=== PATIENT | male | born 1950 | race Caucasian/White ===

== ENCOUNTER 2017-08-13 09:24 | Inpatient (IN) | payer OTHER ==
[~2017-08-13] VITALS: Ht 177.8 cm; Wt 86.2 kg
[2017-08-13 10:28] LABS: ABSOLUTE BASOPHIL COUNT 0 /CUMM (0.0-0.2); ABSOLUTE EOSINOPHIL COUNT 0 /CUMM (0.0-0.7); ABSOLUTE GRANULOCYTE CT 7.9 /CUMM (1.4-6.5); ABSOLUTE LYMPH COUNT 0.1 /CUMM (1.2-3.4); ABSOLUTE MONOCYTE COUNT 0.4 /CUMM (0.10-0.60); BASOPHIL % 0 % (0.0-2.0); EOSINOPHIL % 0 % (0-5); GRANULOCYTE % 93.3 % (42.2-75.2); HEMATOCRIT 42.8 % (42-52); MEAN CORPUSCULAR HGB 26.6 PG (27.0-31.0); MEAN CORPUSCULAR HGB CONC 32.7 G/DL (33.0-37.0); MEAN CORPUSCULAR VOLUME 81.5 FL (80.0-94.0); MEAN PLATELET VOLUME 10.3 FL (7.4-10.4); PLATELET COUNT 199 /CUMM (130-400); RBC DISTRIBUTION WIDTH 15.2 % (11.5-14.5); RED BLOOD CELL CT 5.26 /CUMM (4.70-6.10); WHITE BLOOD CELL COUNT 8.4 /CUMM (4.8-10.8)
--- NOTE | 2017-08-13 10:30 | ED GENERAL ADULT ---
See Addendum History of Present Illness General Chief Complaint: Nausea, Vomiting, Diarrhea Stated Complaint: NVD Source: patient, family () Exam Limitations: no limitations Vital Signs & Intake/Output Vital Signs & Intake/Output Vital Signs Date Time Temp Pulse Resp B/P B/P Pulse O2 O2 Flow FiO2 Mean Ox Delivery Rate 08/13 1640 90/52 08/13 1528 99.5 08/13 1452 99.5 105 18 120/56 98 Room Air 08/13 1102 97.0 100 18 114/50 96 Room Air 08/13 1002 Room Air Room Air 08/13 0931 97.7 116 18 88/61 95 Room Air Allergies Coded Allergies: No Known Allergies (08/13/17) Reconcile Medications Ondansetron (Zofran Odt) 4 MG TAB.RAPDIS 1 TAB SL TID PRN NAUSEA Triage Note: PT TO ER W SPOUSE C/C 1 DAY HX OF N/V/D. HX OF IDDM WITH PUMP, STATES B/S HAD BEEN ERRATIC. LAST FSG 115 AT 0830 - SPOKE WITH DR. BLANKENSHIP WHO ADVISED PT BE SEEN IN ER. PT HYPOTENSIVE, TACHYCARDIC. C/O PAIN ACROSS SHOULDER BLADES WITH MOVEMENT 12/07. Triage Nurses Notes Reviewed? yes Onset: Abrupt Duration: day(s): (1-2), changing over time, continues in ED, getting worse Timing: single episode today Injury Environment: home Severity: moderate, severe Severity Numbers: 6 No Modifying Factors: none Associated Symptoms: back pain HPI: 67-year-old male past medical history of insulin-dependent diabetes presents for evaluation of nausea vomiting diarrhea back pain abdominal pain. Patient states symptoms started last night with multiple episodes of nausea vomiting and diarrhea. Patient states that after having diarrhea she got up from the toilet suddenly felt lightheaded dizzy and fainted. He denies any chest pain or shortness of breath. He says he did not fall he was able to lower himself to the ground most of the way. No blood thinners. He was able to get up on his own after this. He reports continued nausea vomiting and diarrhea today. No recent antibiotics no blood melena recent travel sick contacts or recent antibiotics. No fevers no chest pain or shortness of breath. He reports bilateral lower abdominal cramping. No recent surgery. He states that his blood sugars have been elevated in the 200s. He shot off his insulin pump. He' s not been eating or drinking anything due to nausea vomiting and diarrhea. (Brady Castaneda) Past History Travel History Traveled to [place] past 21 day No Medical History Any Pertinent Medical History? see below for history Cardiovascular: hypertension, hyperlipidemia Endocrine: diabetes Surgical History Surgical History: unobtainable Psychosocial History What is your primary language Icelandic Tobacco Use: Quit >30 days ago Family History Hx Contributory? No (Brady Castaneda) Review of Systems Review of Systems Constitutional: Reports: malaise, weakness. EENTM: Reports: no symptoms. Respiratory: Reports: no symptoms. Cardiovascular: Reports: no symptoms. GI: Reports: see HPI, abdominal pain, diarrhea, nausea, vomiting. Genitourinary: Reports: no symptoms. Musculoskeletal: Reports: see HPI, back pain. Skin: Reports: no symptoms. Neurological/Psychological: Reports: no symptoms. Hematologic/Endocrine: Reports: no symptoms. Immunologic/Allergic: Reports: no symptoms. All Other Systems: Reviewed and Negative (Brady Castaneda) Physical Exam Physical Exam General Appearance: well developed/nourished, no apparent distress, alert, awake Head: atraumatic, normal appearance Eyes: Bilateral: normal appearance, PERRL, EOMI. Ears, Nose, Throat: normal pharynx, normal ENT inspection, hearing grossly normal Neck: normal inspection, supple, full range of motion Respiratory: normal breath sounds, chest non-tender, no respiratory distress, lungs clear Cardiovascular: regular rate/rhythm, normal peripheral pulses Peripheral Pulses: 2+ radial (R), 2+ radial (L) Gastrointestinal: normal bowel sounds, soft, no organomegaly, tenderness (LLQ, RLQ) Back: normal inspection, normal range of motion, TENDERNESS TO PALPATION IN BETWEEN THE SCAPULA. nO BRUISING SWELLING OR ABRASIONS Extremities: normal inspection, normal range of motion, no edema Neurologic/Psych: no motor/sensory deficits, awake, alert, oriented x 3 Skin: intact, normal color, warm/dry Lymphatic: no anterior cervical chelsea Core Measures ACS in differential dx? No CVA/TIA Diagnosis: No Sepsis Present: No Sepsis Focused Exam Completed? No (Brady Castaneda) Progress Differential Diagnoses I considered the following diagnoses in my evaluation of the patient: [Sepsis, DKA, aortic dissection, PE, diverticulitis, viral gastroenteritis, bacterial gastroenteritis, colitis, electrolyte abnormality, arrhythmias] Plan of Care: Orders Procedure Date/time Status Nothing by Mouth 08/14 B Active CBC WITHOUT DIFFERENTIAL 08/14 0600 Active BASIC ELECTROLYTES PLUS BUN&CR 08/14 0600 Active TROPONIN LEVEL 08/13 1943 Active EKG 08/13 1943 Active EKG 08/13 1903 Active Pathway - chart 08/13 1809 Active Saline Lock 08/13 180 Active Pathway - chart 08/13 1808 Active House Staff 08/13 1808 Active Patient Data 08/13 1715 Active ED Holding Orders 08/13 1704 Active Admit to inpatient 08/13 1704 Active Code Status 08/13 1704 Active CULTURE,STOOL 08/13 1629 Active ECHOCARDIOGRAM 08/13 1629 Active LACTIC ACID 08/13 1300 Complete BASIC METABOLIC PANEL 08/13 1300 Complete D-DIMER 08/13 1018 Complete Intake & Output 08/13 1004 Active LACTIC ACID 08/13 1000 Complete URINALYSIS 08/13 0954 Complete TROPONIN LEVEL 08/13 0954 Complete SERUM OSMOLALITY 08/13 0954 Complete MAGNESIUM 08/13 0954 Complete LIPASE 08/13 0954 Complete COMPREHENSIVE METABOLIC PANEL 08/13 0954 Complete CBC WITHOUT DIFFERENTIAL 08/13 0954 Complete ACETONE 08/13 0954 Complete EKG 08/13 0934 Active VTE Mechanical Prophylaxis 08/13 UNK Active MISTAKE 08/13 UNK Active Current Medications Sig/Markel Start time Last Medication Dose Stop Time Status Admin Enoxaparin Sodium 40 MG DAILY 08/14 0900 AC (Lovenox) Hydrocodone Bitart/ 1 TAB Q6P PRN 08/13 194 AC Acetaminophen (Vicodin) Acetaminophen 1,000 MG Q6P PRN 08/13 181 AC (Ofirmev) Dextrose/Sodium 1,000 ML Q10H 08/13 181 CAN Chloride (D5-Normal Saline) Dextrose/Sodium 1,000 ML Q10H 08/13 1800 AC 08/13 Chloride 1930 (D5W-1/2 Normal Saline 1000ML) Insulin Detemir 12 UNITS BID 08/13 1800 AC 08/13 (Levemir) 1930 Laboratory Tests 08/13/17 1502: Urinalysis LIGHT H, Urine Color YEL, Urine Clarity HAZY H, Urine pH 6.0, Ur Specific [place] 1.025, Urine Protein 30 H, Urine Ketones 15 H, Urine Nitrite NEG, Urine Bilirubin NEG@ICTO, Urine Urobilinogen 0.2, Ur Leukocyte Esterase NEG , Ur Microscopic SEDIMENT EXAMINED, Urine RBC 1-3, Urine WBC 1-3 H, Ur Epithelial Cells RARE, Urine Bacteria FEW H, Hyaline Casts PACK H, Granular Casts RARE H, Urine Mucus FEW, Urine Hemoglobin NEG, Urine Glucose NEG 08/13/17 1307: Anion Gap 14, Estimated GFR > 60, BUN/Creatinine Ratio 31.7 H, Glucose 202 H, Lactic Acid 1.5, Calcium 8.2 L 08/13/17 1018: Lactic Acid 2.9 H 08/13/17 1018: Anion Gap 16, Estimated GFR 40 L, BUN/Creatinine Ratio 22.9, Glucose 199 H, Serum Osmolality 305 H, Calcium 9.3, Magnesium 1.6, Total Bilirubin 1.4 H, AST 20, ALT 27, Alkaline Phosphatase 51, Troponin I < 0.01, Total Protein 6.7, Albumin 4.0, Globulin 2.7, Albumin/Globulin Ratio 1.5, Lipase < 10 L, D-Dimer High Sensitivty 9328 H, CBC w Diff MAN DIFF ORDERED, RBC 5.26, MCV 81.5, MCH 26.6 L, MCHC 32.7 L, RDW 15.2 H, MPV 10.3, Gran % 93.3 H, Lymphocytes % 1.5 L, Monocytes % 5.2, Eosinophils % 0, Basophils % 0, Absolute Granulocytes 7.9 H , Segmented Neutrophils 69, Band Neutrophils 24 H, Absolute Lymphocytes 0.1 L, Lymphocytes 3 L, Monocytes 3, Absolute Monocytes 0.4, Absolute Eosinophils 0, Basophils 1, Absolute Basophils 0, Platelet Estimate ADEQUATE, Poikilocytosis RARE, Ovalocytes RARE, Selina Cells RARE, Acetone Level NEGATIVE Microbiology 08/13 1629 STOOL: Stool Culture - ORD Patient seen and evaluated. He is here with nausea vomiting diarrhea weakness. Yesterday he had an episode where he got dizzy lightheaded and syncopized after having multiple episodes of diarrhea and nausea and vomiting. He comes in hypotensive and tachycardic complaining of some lower abdominal pain and thoracic back pain. Patient was started on IV fluids IV Zofran given check basic labs CT scan of the head neck chest abdomen and pelvis. Blood work reveals acute kidney injury with a creatinine of 1.7 lactic acidosis at 2.9. Additional fluids ordered patient is responding well with a blood pressure in the 120 systolic. Heart rate coming down. D-dimer significantly elevated to greater than 9000 a VQ scan was ordered. Additionally he has bandemia. 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 V/Q scan is negative. Repeat basic metabolic panel and lactic acid show improvement with a creatinine of 1.2 now and LACTIC acid of 1.5. Patient reports improvement in his back pain. Considered aortic dissection however the chest x- ray and CT chest without contrast is negative patient has tenderness to palpation to his thoracic paraspinous muscles. Pain is worse with movement. Attempted to discharge the patient however his repeat pressure again dropped to 90s over 50s and he is reporting increasing weakness. Additional fluids were ordered patient will be admitted for further evaluation and treatment. He will require IV fluids, IV anti-Emeics, serial labs, monitoring of vital signs, serial EKGs, GI consult. Case discussed with Dr. Ramsey he agrees. A call was placed out to Dr. blankenship for consult since patient has an insulin pump. Diagnostic Imaging: Viewed by Me: CT Scan, Nuclear Medicine. Discussed w/RAD: CT Scan, Nuclear Medicine. Radiology Impression: PATIENT: MEGAN THURSTON PRESENT AGE: 67 PATIENT ACCOUNT NO: [id number] : 50 LOCATION: [facility] ORDERING PHYSICIAN: Brady BOBBY SERVICE DATE: 08/13/17 EXAM TYPE: CAT - CT CERV SPINE WO IV CONTRAST; CT HEAD WO IV CONTRAST EXAMINATION: CT HEAD AND CERVICAL SPINE. CLINICAL INFORMATION: Possible syncope with head strike. Evaluate for intrarenal mass effect or hemorrhage. COMPARISON: No relevant prior imaging. TECHNIQUE: Roll Icer images were obtained. A CT acquisition of the head and cervical spine was performed without intravenous administration of contrast. Data was reformatted into multiplanar images at the acquisition workstation. DLP : 1053.89 mGy-cm. FINDINGS: Head: There is no acute intracranial hemorrhage or abnormal extra axial collection. No intracranial mass effect or midline shift. Lateral and third ventricles are normal. No hydrocephalus. Ill-defined foci of hypoattenuation are visualized within the periventricular white matter that most likely represent a chronic manifestation of small vessel ischemia. Anton-white matter differentiation is grossly preserved and there is no evidence of acute territorial infarct. The calvarium and skull base are intact. Mastoid air cells and middle ear cavities are well aerated. Mild paranasal sinus disease primarily affecting the ethmoid air cells. Cervical spine: Alignment is normal. Vertebral heights are preserved. There is no acute fracture. No abnormal prevertebral soft tissue swelling. Hypertrophic disc osteophyte complex are visualized at multiple levels within the mid to lower cervical spine. There is degenerative arthrosis of the atlantodental joint with spurring at the superior margin of the anterior C1 arch and at the odontoid tip. Grossly no evidence of canal compromise. Minimal uncovertebral joint spurring visualized at multiple levels. No substantial bony neuroforaminal encroachment. Lung apices are clear. Soft tissues of the neck are unremarkable. IMPRESSION: Head: No acute intracranial hemorrhage. There scattered chronic small vessel ischemic changes within the periventricular white matter. No evidence of acute territorial infarct. Cervical spine: No acute cervical spine fracture. There are hypertrophic disc osteophyte complexes at multiple consecutive vertebral segments within the mid to lower cervical spine. DICTATED BY: Alondra CONTRERAS,Shane Phillips DATE/TIME DICTATED:08/13/171227 COURTESY DRIVER:NELY DATE/TIME TRANSCRIBED:08/13/171227 CONFIDENTIAL, DO NOT COPY WITHOUT APPROPRIATE AUTHORIZATION., PATIENT: MEGAN THURSTON PRESENT AGE: 67 PATIENT ACCOUNT NO: [id number] : 50 LOCATION: [facility] ORDERING PHYSICIAN: Brady BOBBY SERVICE DATE: 08/13/17 EXAM TYPE: NUC - LUNG SCAN (V/Q) EXAMINATION: PULMONARY VENTILATION PERFUSION STUDY CLINICAL INFORMATION: Elevated d-dimer, upper back pain. COMPARISON: No previous lung scan or chest radiographs available for comparison. The diagnostic CT scan of the chest, abdomen, and pelvis, dated 08/13/2017, is available for comparison. TECHNIQUE: Serial gamma scintillation camera images were obtained over the posterior chest during the single breath, equilibrium rebreathing and washout of 11 mCi Xe 133 gas. The patient then received 4.1 mCi Tc-99m MAA intravenously and a 6-view perfusion study was performed. FINDINGS: Ventilation images: On the single breath and equilibrium images there is homogeneous distribution of gas bilaterally. During the washout phase there is no abnormal retention. Perfusion images: No segmental perfusion defects are present. There is homogeneous distribution of activity bilaterally. There are no focal anatomic appearing perfusion defects present. IMPRESSION: Normal radionuclide lung ventilation perfusion scan. DICTATED BY: Vinny Greenwood MD DATE/TIME DICTATED:08/13/171456 COURTESY DRIVER: NELY DATE/TIME TRANSCRIBED:08/13/171456 CONFIDENTIAL, DO NOT COPY WITHOUT APPROPRIATE AUTHORIZATION. <Electronically signed in Other Vendor System> SIGNED BY: Vinny Greenwood MD 08/13/17 1505 Initial ED EKG: SINSU TACH RATE 109 BORDERLINE T WAVE ABN INFERIOR LEADS (Brady Castaneda) Departure Departure Disposition: STILL A PATIENT Condition: Stable Clinical Impression Primary Impression: Nausea vomiting and diarrhea Secondary Impressions: Dehydration Hypotension Qualifiers: Hypotension type: unspecified hypotension type Qualified Code: I95.9 - Hypotension, unspecified Syncope Qualifiers: Syncope type: unspecified Qualified Code: R55 - Syncope and collapse Referrals: Chanda CONTRERAS,Jacky Ly MD,Thom Guzman (PCP/Family) Slava CONTRERAS,Boubacar Additional Instructions: Rest and drink plenty of fluids. Eat bland foods like bananas rice applesauce and toast. Continue Tylenol as needed for pain Zofran for nausea. Follow up with her center medical specialist and GI doctor as soon as possible to review all results of today's visit monitor symptoms closely return with any concerns. Departure Forms: Customer Survey General Discharge Information Prescriptions: Current Visit Scripts Ondansetron (Zofran Odt) 1 TAB SL TID PRN NAUSEA #15 TAB Admission Note Spoke With: Saravanan CONTRERAS,Armida Guzman Documentation of Exam: Documentation of any treatments & extenuating circumstances including Concerns Regarding Discharge (functional status, medication knowledge or non-compliance, living conditions, etc.) that warrant an admission rather than observation: [IV fluids, GI consult, serial labs, telemetry, EKGs, cardiology, echocardiogram, monitoring of vital signs, anti-EBNEMT] (Brady Castaneda) PA/PRODUCT DEVELOPER Co-Sign Statement Statement: ED Attending supervision documentation- [x] I saw and evaluated the patient. I have also reviewed all the pertinent lab results and diagnostic results. I agree with the findings and the plan of care as documented in the PA's/PRODUCT DEVELOPER's documentation. [] I have reviewed the ED Record and agree with the PA's/PRODUCT DEVELOPER's documentation. [] Additions or exceptions (if any) to the PAs/PRODUCT DEVELOPER's note and plan are summarized below: [] (Alvaro Ramsey DO) Critical Care Note Critical Care Note Critical Care Time: non-applicable (Adin BOBBY,Brady)
--- NOTE | 2017-08-13 12:35 | CT SCAN REPORT ---
EXAMINATION: CT HEAD AND CERVICAL SPINE. CLINICAL INFORMATION: Possible syncope with head strike. Evaluate for intrarenal mass effect or hemorrhage. COMPARISON: No relevant prior imaging. TECHNIQUE: Sleeping Room Cleaner images were obtained. A CT acquisition of the head and cervical spine was performed without intravenous administration of contrast. Data was reformatted into multiplanar images at the acquisition workstation. DLP: 1053.89 mGy-cm. FINDINGS: Head: There is no acute intracranial hemorrhage or abnormal extra axial collection. No intracranial mass effect or midline shift. Lateral and third ventricles are normal. No hydrocephalus. Ill-defined foci of hypoattenuation are visualized within the periventricular white matter that most likely represent a chronic manifestation of small vessel ischemia. Anton-white matter differentiation is grossly preserved and there is no evidence of acute territorial infarct. The calvarium and skull base are intact. Mastoid air cells and middle ear cavities are well aerated. Mild paranasal sinus disease primarily affecting the ethmoid air cells. Cervical spine: Alignment is normal. Vertebral heights are preserved. There is no acute fracture. No abnormal prevertebral soft tissue swelling. Hypertrophic disc osteophyte complex are visualized at multiple levels within the mid to lower cervical spine. There is degenerative arthrosis of the atlantodental joint with spurring at the superior margin of the anterior C1 arch and at the odontoid tip. Grossly no evidence of canal compromise. Minimal uncovertebral joint spurring visualized at multiple levels. No substantial bony neuroforaminal encroachment. Lung apices are clear. Soft tissues of the neck are unremarkable. IMPRESSION: Head: No acute intracranial hemorrhage. There scattered chronic small vessel ischemic changes within the periventricular white matter. No evidence of acute territorial infarct. Cervical spine: No acute cervical spine fracture. There are hypertrophic disc osteophyte complexes at multiple consecutive vertebral segments within the mid to lower cervical spine.
--- NOTE | 2017-08-13 13:16 | CT SCAN REPORT ---
EXAMINATION: CT chest, abdomen, AND PELVIS WITHOUT CONTRAST CLINICAL INFORMATION: Acute abdomen abdominal aortic aneurysm and thoracic back pain. COMPARISON: None TECHNIQUE: Multidetector volumetric imaging was performed from the superior aspect of the liver through the pubic symphysis. Sagittal and coronal reformatted images were obtained on the technologist's workstation. DLP: 965 mGy-cm FINDINGS: CHEST: Lungs and pleural spaces: There is patchy linear opacity at the bases left greater than right most compatible with discoid atelectasis or scarring. Lungs otherwise clear no effusions. Lymph nodes: Normal. CARDIOVASCULAR: Minimal arterial calcification No pericardial effusion. Heart size within normal limits pulmonary vessels unremarkable. Esophagus: Normal. Thoracic inlet: Normal. Soft tissues: Normal. Osseous structures: Multilevel spondylosis of the dorsal spine. ABDOMEN AND PELVIS: LIVER, GALLBLADDER, AND BILIARY TREE: Liver: There is a hypodense lesion compatible with simple cyst within the right lobe liver in segment 5 measuring 17 mm transverse and 18 mm AP. There is a second hypodense lesion measuring 5 mm in segment 6 too small to clearly characterize on this noncontrast exam. See axial image 64 series 2 The gallbladder is unremarkable with no evidence of radiopaque gallstones, gallbladder wall thickening, or obvious pericholecystic inflammatory changes. PANCREAS: Unremarkable. SPLEEN: Unremarkable. ADRENAL GLANDS: Unremarkable. KIDNEYS AND URETERS: The kidneys are normal in size, shape, and attenuation. No hydronephrosis, hydroureter, or calculi seen. No perinephric stranding. BLADDER: Unremarkable. GASTROINTESTINAL TRACT: The small and large bowel are unremarkable. The appendix is unremarkable. ABDOMINAL WALL: No significant hernia is appreciated. LYMPH NODES: There are multiple lymph nodes within the mesentery which appears to contain edema sometimes referred to as a lawson mesentery. The largest lymph node measures 15 mm. Most of the lymph nodes measure 5 mm or less. This appearance can be seen with mesenteric panniculitis VASCULAR: Mild to moderate calcific atherosclerotic disease PELVIC VISCERA: Unremarkable. OSSEOUS STRUCTURES: Mild multilevel spondylosis of the lumbar sacral spine mild arthrosis of the left hip manifested by small marginal osteophytes and/or subchondral cysts. 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 No evidence for aortic aneurysm Multilevel spondylosis of lumbar sacral spine 1.8 cm simple cyst right lobe of liver. Second hypodense lesion measuring 5 mm too small to clearly characterize but likely reflects a second cyst. This could be reevaluated with ultrasound on a nonemergent basis if felt clinically necessary. CHEST: Calcific atherosclerotic disease. Bibasilar atelectasis or scarring
--- NOTE | 2017-08-13 15:05 | NUCLEAR MEDICINE REPORT ---
EXAMINATION: PULMONARY VENTILATION PERFUSION STUDY CLINICAL INFORMATION: Elevated d-dimer, upper back pain. COMPARISON: No previous lung scan or chest radiographs available for comparison. The diagnostic CT scan of the chest, abdomen, and pelvis, dated 08/13/2017, is available for comparison. TECHNIQUE: Serial gamma scintillation camera images were obtained over the posterior chest during the single breath, equilibrium rebreathing and washout of 11 mCi Xe 133 gas. The patient then received 4.1 mCi Tc-99m MAA intravenously and a 6-view perfusion study was performed. FINDINGS: Ventilation images: On the single breath and equilibrium images there is homogeneous distribution of gas bilaterally. During the washout phase there is no abnormal retention. Perfusion images: No segmental perfusion defects are present. There is homogeneous distribution of activity bilaterally. There are no focal anatomic appearing perfusion defects present. IMPRESSION: Normal radionuclide lung ventilation perfusion scan.
[2017-08-13] MEDS ORDERED: ZOFRAN ODT4 M1 SL (16:01)
--- NOTE | 2017-08-13 17:07 | Admission Certification ---
Admission Certification Certification Statement - As attending physician, I certify that at the time of - admission, based on clinical presentation, severity of - symptoms, need for further diagnostic testing and - therapeutic interventions, and risk of adverse outcomes - without in-hospital treatment, in my clinical assessment, - this patient requires an acute hospital stay for a minimum - of two nights or longer. I have also considered psychsocial - factors such as support system, advanced age, financial - issues, cognitive issues, and failed out-patient treatments, - past re-admission history, safety of patient, and lack of - compliance as applicable. Specific rationale supporting this admission is: Syncope, hypotension and UMAIR in patient with insulin-requiring diabetes.
--- NOTE | 2017-08-13 18:18 | History & Physical ---
Annita Kang MD 08/13/171816: General Information and HPI MD Statement: I have seen and personally examined MEGAN THURSTON and documented this H&P. The patient is a 67 year old M who presented with a patient stated chief complaint of nausea, vomiting, diarrhea Source of Information: patient, family Exam Limitations: no limitations History of Present Illness: This is a 67-year-old male with a past medical history significant for insulin- dependent diabetes mellitus for 11 years with an insulin pump placed 7 years back, hypertension on lisinopril, hyperlipidemia on simvastatin that comes to us for one day history of nausea, vomiting, diarrhea after eating a chicken/cheese empanada on Sunday afternoon. He states that after eating it he developed bloating later in the evening and had multiple episodes of vomiting, first with clear food particles and later containing just clear liquid. He also had several episodes of diarrhea, reports not witnessing the color/consistency as he felt "too sick". He also admits to chills. He states that recently his blood sugar has been "erratic". The patient states that around 2:00 in the morning after he had another watery bowel movement and attempted to stand up, he felt faint and slumped to his right side on the toilet. He denies any fall, head injury, stayed propped up against the wall. He states he didn't lose consciousness for "several moments" but ultimately came to, remembering the episode. The patient denies any recent antibiotic use, admits to his most recent travel being to [place] at the end of May. He denies any chest pain, shortness of breath, abdominal pain other than the bloating. He denies any headache, change in vision, change in hearing. Since this episode, the patient has not eaten anything. The patient also admits to 4 out of 10 pain between his shoulder blades that is worse on movement. The pain was at worst 8/10. He notes that Tylenol did help the pain. PCP is Dr. Ly. Allergies/Medications Allergies: Coded Allergies: No Known Allergies (08/13/17) Home Med list Lisinopril 10 MG TABLET 1 TAB PO DAILY HTN (Reported) Ondansetron (Zofran Odt) 4 MG TAB.RAPDIS 1 TAB SL TID PRN NAUSEA Simvastatin (SIMVASTATIN*) 80 MG TABLET 1 TAB PO DAILY HLD (Reported) Compliance With Home Meds: GOOD Past History Travel History Traveled to [place] past 21 day No Medical History Cardiovascular: hypertension, hyperlipidemia Endocrine: diabetes Surgical History Surgical History: unobtainable Past Family/Social History Family History Relations & Conditions if any MOTHER FH: pancreatic cancer FATHER FH: CAD (coronary artery disease) Psychosocial History Smoking Status: Former Smoker ETOH Use: occasional use Illicit Drug Use: denies illicit drug use Review of Systems Review of Systems Constitutional: Reports: malaise. EENTM: Reports: no symptoms. Cardiovascular: Reports: no symptoms. Respiratory: Reports: no symptoms. GI: Reports: bloating, diarrhea, nausea, vomiting. Genitourinary: Reports: no symptoms. Musculoskeletal: Reports: back pain, muscle pain. Skin: Reports: no symptoms. Neurological/Psychological: Reports: no symptoms. Hematologic/Endocrine: Reports: no symptoms. Exam & Diagnostic Data Last 24 Hrs of Vital Signs/I&O Vital Signs Date Time Temp Pulse Resp B/P B/P Pulse O2 O2 Flow FiO2 Mean Ox Delivery Rate 08/13 2302 98.5 92 14 116/63 95 Room Air 08/13 2040 98.6 99 18 132/61 96 Room Air 08/13 1640 90/52 08/13 1528 99.5 08/13 1452 99.5 105 18 120/56 98 Room Air 08/13 1102 97.0 100 18 114/50 96 Room Air 08/13 1002 Room Air Room Air 08/13 0931 97.7 116 18 88/61 95 Room Air Intake & Output 08/13 1600 08/13 0800 08/13 0000 Intake Total 1000 Output Total Balance 1000 Intake, IV 1000 Intake, Oral 0 Patient 198 lb Weight Weight Reported by Patient Measurement Method Physical Exam General Appearance Alert, Oriented X3, Cooperative, No Acute Distress Skin No Rashes, No Breakdown, No Significant Lesion Skin Temp/Moisture Exam: Warm/Dry Sepsis Skin Exam (color): Normal for Ethnicity HEENT Atraumatic, PERRLA, EOMI, Mucous Membr. moist/pink Neck Supple, No JVD Cardiovascular Regular Rate, Normal S1, Normal S2, murmur greatest at lower left sternal border, 3/6 Lungs Clear to Auscultation, Normal Air Movement Abdomen Normal Bowel Sounds, Soft, No Hepatospenomegaly, No Masses Neurological Normal Speech Extremities No Clubbing, No Cyanosis, No Edema, Normal Pulses, No Tenderness/ Swelling Vascular Normal Pulses, Pulses Symmetrical Sepsis Peripheral Pulse Location: Radial Sepsis Peripheral Pulse Exam: Normal Last 24 Hrs of Labs/Aris: Laboratory Tests 08/13/172014: Troponin I < 0.01 08/13/17 1502: Urinalysis LIGHT H, Urine Color YEL, Urine Clarity HAZY H, Urine pH 6.0, Ur Specific [place] 1.025, Urine Protein 30 H, Urine Ketones 15 H, Urine Nitrite NEG, Urine Bilirubin NEG@ICTO, Urine Urobilinogen 0.2, Ur Leukocyte Esterase NEG , Ur Microscopic SEDIMENT EXAMINED, Urine RBC 1-3, Urine WBC 1-3 H, Ur Epithelial Cells RARE, Urine Bacteria FEW H, Hyaline Casts PACK H, Granular Casts RARE H, Urine Mucus FEW, Urine Hemoglobin NEG, Urine Glucose NEG 08/13/17 1307: Anion Gap 14, Estimated GFR > 60, BUN/Creatinine Ratio 31.7 H, Glucose 202 H, Lactic Acid 1.5, Calcium 8.2 L 08/13/17 1018: Lactic Acid 2.9 H 08/13/17 1018: Anion Gap 16, Estimated GFR 40 L, BUN/Creatinine Ratio 22.9, Glucose 199 H, Serum Osmolality 305 H, Calcium 9.3, Magnesium 1.6, Total Bilirubin 1.4 H, AST 20, ALT 27, Alkaline Phosphatase 51, Troponin I < 0.01, Total Protein 6.7, Albumin 4.0, Globulin 2.7, Albumin/Globulin Ratio 1.5, Lipase < 10 L, D-Dimer High Sensitivty 9328 H, CBC w Diff MAN DIFF ORDERED, RBC 5.26, MCV 81.5, MCH 26.6 L, MCHC 32.7 L, RDW 15.2 H, MPV 10.3, Gran % 93.3 H, Lymphocytes % 1.5 L, Monocytes % 5.2, Eosinophils % 0, Basophils % 0, Absolute Granulocytes 7.9 H , Segmented Neutrophils 69, Band Neutrophils 24 H, Absolute Lymphocytes 0.1 L, Lymphocytes 3 L, Monocytes 3, Absolute Monocytes 0.4, Absolute Eosinophils 0, Basophils 1, Absolute Basophils 0, Platelet Estimate ADEQUATE, Poikilocytosis RARE, Ovalocytes RARE, [place] Cells RARE, Acetone Level NEGATIVE Microbiology 08/13 1629 STOOL: Stool Culture - ORD Assessment/Plan Assessment: This is a 67-year-old male with a past medical history significant for insulin- dependent diabetes mellitus for 11 years with an insulin pump placed 7 years back, hypertension on lisinopril, hyperlipidemia on simvastatin that comes to us for one day history of nausea, vomiting, diarrhea after eating a chicken/cheese empanada on Sunday afternoon. The patient states that he has had poor glucose control recently. He also had an episode of syncope after using the bathroom. He also complains of back pain between his shoulder blades. The patient is a current smoker. In the ED, vitals were temperature afebrile, hypotensive and tachycardic with a creatinine of 1.7, BUN 39, lactic acidosis of 2.9. CBC showed granulocyte predominance of 93.3. D-dimer 9328. UA showed protein, ketones, Hyaline casts but no glucose. Bicarbonate 18, glucose 202, serum osmolarity 305, total bilirubin 1.4. Acetone level negative. Troponin negative. CT head showed no acute hemorrhage, no cervical spine fracture but hypertrophic disc osteophyte complexes at mid to low cervical spine. 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 CT chest showed bibasilar atelectasis and VQ scan was normal. Patient was given fluids and his blood pressure increased to 120/56 then decreased again to 90/52. His lactic acid decreased to 1.5 and his creatinine decreased to 1.2. Patient however continued to feel nauseous, unwell, and have dizziness. Patient has no evidence of ketoacidosis. However his gastrointestinal problems may be secondary to uncontrolled blood sugars/gastroparesis. He may also be experiencing simple gastroenteritis or food poisoning. Secondary to his continued dizziness and labile vitals, we will admit him to telemetry for further monitoring. Plan We will admit patient to telemetry for evaluation and treatment of the following : 1. Nausea, vomiting, diarrhea: -Least patient on nothing by mouth with advance as tolerated -Zofran for nausea and vomiting -Monitor electrolytes and replete as needed, anion gap normal -D5 half-normal saline at 100 mils per hour -Stool culture -GI consult if patient continues to have symptoms 2. Diabetes -Endocrinology consult in the morning for better control of blood glucose -Hemoglobin A1c -Accu-Cheks -NovoLog sliding scale 3. Dizziness secondary to probable dehydration/questionable arrhythmia/ electrolyte disturbance -Fall precautions -Continue telemetry -Replete electrolytes as needed and continue fluids 4. Back pain: Relieved with Tylenol but patient is a smoker and has a family history of coronary artery disease and risk factors. -Troponin and EKG 2 -Pain pathway -Echocardiogram in the morning 5. History of hypertension and hyperlipidemia -Continue patient's atorvastatin 80 mg -Hold antihypertensives as patient's blood pressure is on the lower side Patient is full code DVT prophylaxis with heparin and Alps As Ranked By This Provider Problem List: 1. Syncope Qualifiers Syncope type: unspecified Qualified Code: R55 - Syncope and collapse 2. Hypotension Qualifiers Hypotension type: unspecified hypotension type Qualified Code: I95.9 - Hypotension, unspecified 3. Dehydration 4. Nausea vomiting and diarrhea Core Measures/Misc (01/14) Acute Coronary Syndrome ACS Diagnosis: No Congestive Heart Failure Congestive Heart Failure Diagnosis No Cerebrovascular Accident CVA/TIA Diagnosis: No VTE (View Protocol) VTE Risk Factors Age>40 No Mechanical VTE Prophylaxis d/t N/A MechProphylax Ordered No VTE Pharm Prophylaxis d/t NA PharmProphylax ordered Sepsis (View protocol) Sepsis Present: No Armida Coe MD 08/13/17 1845: Attending MD Review Statement Attending Statement Attending MD Statement: examined this patient, discuss w/resident/PA/MEDICAL RECORDS CODER, agreed w/resident/PA/MEDICAL RECORDS CODER, reviewed EMR data (avail), discussed with nursing, reviewed images Attending Assessment/Plan: 67-year-old male past medical history of diabetes with an insulin pump is here with acute onset of nausea, vomiting diarrhea and a syncopal event the day prior to admission. Initially when he came into the emergency room he was hypotensive, tachycardic, had UMAIR with a BUN of 39 and a creatinine of 1.7 with an anion gap- lactic acidosis of 2.9. He also had an elevated d-dimer in the 9[address] of the chest and abdomen pelvis without contrast reveals no obvious focus of infection other than mesenteric paniculitis. A VQ scan done is negative for PE. With hydration initially his pressure improved to the 120s and his repeat labs showed his creatinine has improved to 1.2. However he continues to feel dizzy and his pressure dropped again to 90/50. I think at this point given his diabetes, his hypotension and the syncopal event it's prudent to bring him into telemetry. Will need to watch him on the monitor to make sure he is not having any arrhythmias and continue aggressive hydration. Given the insulin pump will have to call endocrine to convert to basal and bolus insulin coverage subcutaneous. Will repeat his labs after hydration to follow on the anion gap and the BUN and creatinine. Marily Miranda 08/13/17 2322: Resident Review Statement Resident Statement: examined this patient, discussed with epidemiology intern, agreed with epidemiology intern, discussed with family, reviewed EMR data (avail), discussed with nursing , discussed with case mgmt, reviewed images Other Findings: is a 67 yo man with PMHx. of insulin-dependent diabetes (on insulin pump) diagnosed about 11 years ago, hypertension, hyperlipidemia, mild peripheral neuropathy presented to emergency department with a chief complaint of nausea, vomiting, and diarrhea started last night. Patient reported that he ate chicken/cheese pastry yesterday in the afternoon after that he felt bloated later in the evening he started to feel nauseous with multiple episodes of vomiting/diarrhea, his vomitus initially was food particles and clear liquid with no blood reported, he has also multiple episodes of diarrhea he couldn't check if there is any blood, he reports chills with no documented fever, at 2 AM last night while he is in the bathroom he felt weak he plan to the floor on his knee then he passed for a few seconds but he was able to lean to his right side with no head trauma. He complained of 8/10 crampy back pain in between his shoulder blades, he attributed that to retching. He turn off his insulin pump. Patient reports having colonoscopy about 2 years ago and he scheduled to have colonoscopy every 5 years because of polyposis. At ED he was noticed to be tachycardic initially to 105, and his blood pressure was low to 90/52 mmHg, his blood pressure responded nicely to fluid challenge. His symptoms of nausea and vomiting and diarrhea during my evaluation was improved and he wish to start clear liquid diet On examination: He is awake, alert, oriented, in mild distress Heart: S1, S2 with no added sound Lung: Clear Abdomen: Abdominal wall hernia was noted, positive bowel sound, no tenderness LE: normal pulse, no edema His lab was pertinent to BUN 38, creatinine 1.7 which improved later to 1.2 after hydration, lactic acid initially was high at 2.9 which improved to 1.5 VQ scan done to rule out PE given that the patient was having UMAIR in the initial labs, which was negative. Abdomen pelvis CT shows mesenteric pancolitis, 1.8 cm simple cyst in the right lobe of the liver, second hypodense lesion measure 5 mm too small to clearly characterize likely reflects the second cyst. CT chest: Showed calcific atherosclerosis disease, bibasilar atelectasis or scarring Head CT/cervical spine CT shows no intracranial pathology, no fracture Will admitt the patient to telemetry floor to rule out any arrhythmia, his symptoms most likely secondary to viral gastroenteritis, will treat him at this point symptomatically with hydration, D5 half-normal saline given history of diabetes. (case discussed with topology teacher by ED who recommend levemir 12 units twice a day, and put him on insulin sliding scale), will place on official endocrinology consult, Zofran for nausea as needed, will repeat his labs tomorrow, pain management with Tylenol and Vicodin as needed. DVT prophylaxis with SC heparin, FC
[2017-08-13] MEDS ORDERED: LISINOPRIL10 M1 PO (20:23)
[2017-08-13] MEDS ORDERED: ZOCOR80 M1 PO (20:24)
[2017-08-14 00:18] VITALS: BP 126/54
[2017-08-14 06:59] VITALS: BP 122/66
--- NOTE | 2017-08-14 08:01 | Cons- Endocrinology ---
General Information and HPI Consulting Request Date of Consult: 08/14/17 Requested By: medical team Reason for Consult: Uncontrolled diabetes type 1 Source of Information: patient, family, old records Exam Limitations: no limitations (noine) History of Present Illness: This 67-year-old male has a known history of type 1 diabetes on the Medtr[employer] pump. His total basal rate on the pump is 24 units for 24 hours. The patient presented with a gastrointestinal upset with nausea vomiting and diarrhea after eating a chicken empanata. He was up during the night and eventually became weak felt felt faint. Yesterday morning the patient's spoke with Dr. blankenship who advised that he come to the emergency room. He was found to be dehydrated with a creatinine of 1.7. He was not in ketoacidosis. Last night I spoke with the PA in the ER and recommended Levemir 12 units twice a day the first dose stat after stopping his pump. In addition we recommended placing the patient on D5 half-normal saline at 100 cc/h because we did not know how well he was going to eat. He had already had 3-4 L of normal saline. We suggested that he be given a NovoLog sliding scale every 4 hours while n.p.o. The sliding scale was written as 3 times daily rather than every 4 hours as suggested. The patient's blood sugars during the night were in the 230-250 range. Allergies/Medications Allergies: Coded Allergies: No Known Allergies (08/13/17) Home Med List: Lisinopril 10 MG TABLET 1 TAB PO DAILY HTN (Reported) Ondansetron (Zofran Odt) 4 MG TAB.RAPDIS 1 TAB SL TID PRN NAUSEA Simvastatin (SIMVASTATIN*) 80 MG TABLET 1 TAB PO DAILY HLD (Reported) Current Medications: Current Medications Sig/Markel Start time Last Medication Dose Route Stop Time Status Admin Acetaminophen 0 .STK-MED ONE 08/13 2030 DC IV Acetaminophen 650 MG ONCE ONE 08/13 2014 CAN PO 08/13 2016 Acetaminophen 1,000 MG Q6P PRN 08/13 1815 AC 08/13 IV 2040 Acetaminophen 0 .STK-MED ONE 08/13 1441 DC IV Acetaminophen 1,000 MG ONCE ONE 08/13 1430 DC 08/13 N/A 1 UNIT IV 08/13 1444 1437 Atorvastatin Calcium 80 MG 1700 08/14 1700 AC PO Dextrose/Sodium 1,000 ML Q10H 08/13 1815 CAN Chloride IV Dextrose/Sodium 1,000 ML Q10H 08/13 1800 AC 08/13 Chloride IV 1930 Enoxaparin Sodium 40 MG DAILY 08/14 0900 CAN SC Heparin Sodium 5,000 UNIT Q8 08/13 2200 AC (Porcine) SC Hydrocodone Bitart/ 1 TAB Q6P PRN 08/13 194 AC Acetaminophen PO Insulin Aspart 0 TIDAC 08/14 0800 AC SC Insulin Detemir 12 UNITS BID 08/13 1800 AC 08/13 SC 1930 Ondansetron HCl 4 MG Q6P PRN 08/13 2014 AC IV Ondansetron HCl 0 .STK-MED ONE 08/13 1006 DC .ROUTE Ondansetron HCl 4 MG ONCE ONE 08/13 1000 DC 08/13 IV 08/13 1001 1002 Sodium Chloride 1,000 ML BOLUS ONE 08/13 1630 DC 08/13 IV 08/13 1729 1657 Sodium Chloride 1,000 ML BOLUS ONE 08/13 1300 DC 08/13 IV 08/13 1359 1415 Sodium Chloride 1,000 ML BOLUS ONE 08/13 1015 DC / IV 08/13 1114 1002 Sodium Chloride 1,000 ML BOLUS ONE 08/13 1015 DC 08/13 IV 08/13 1114 1100 Review of Systems Review of Systems Constitutional: Denies: chills, fever. Cardiovascular: Reports: chest pain (between shoulder blades). Respiratory: Denies: cough, short of breath. GI: Reports: bloating, diarrhea, distention. Denies: abdominal pain. Genitourinary: Denies: dysuria. Skin: Reports: no symptoms. Past History Travel History Traveled to [place] past 21 day No Medical History Cardiovascular: hypertension, hyperlipidemia Endocrine: diabetes Surgical History Surgical History: unobtainable Family History Relations & Conditions If Any: MOTHER FH: pancreatic cancer FATHER FH: CAD (coronary artery disease) Psychosocial History Smoking Status: Former Smoker ETOH Use: occasional use Illicit Drug Use: denies illicit drug use Exam & Diagnostic Data Last 24 Hrs of Vital Signs/I&O Vital Signs Date Time Temp Pulse Resp B/P B/P Pulse O2 O2 Flow FiO2 Mean Ox Delivery Rate 08/14 0659 98.2 95 20 122/66 92 Room Air 08/14 0018 98.7 89 20 126/54 94 Room Air 08/13 2302 98.5 92 14 116/63 95 Room Air 08/13 2040 98.6 99 18 132/61 96 Room Air 08/13 1640 08/13 1528 99.5 08/13 1452 99.5 105 18 120/56 98 Room Air 08/13 1102 97.0 100 18 114/50 96 Room Air 08/13 1002 Room Air Room Air 08/13 0931 97.7 116 18 88/61 95 Room Air Intake & Output 08/14 0000 08/13 1600 Intake Total 1000 Output Total Balance 1000 Intake, IV 1000 Intake, Oral 0 Patient 198 lb Weight Weight Reported by Patient Measurement Method Vital Signs Date Time Temp Pulse Resp B/P B/P Pulse O2 O2 Flow FiO2 Mean Ox Delivery Rate 08/14 0659 98.2 95 20 122/66 92 Room Air 08/14 0018 98.7 89 20 126/54 94 Room Air 08/13 2302 98.5 92 14 116/63 95 Room Air 08/13 2040 98.6 99 18 132/61 96 Room Air 08/13 1640 08/13 1528 99.5 08/13 1452 99.5 105 18 120/56 98 Room Air 08/13 1102 97.0 100 18 114/50 96 Room Air 08/13 1002 Room Air Room Air 08/13 0931 97.7 116 18 88/61 95 Room Air Intake & Output 08/14 0000 08/13 1600 Intake Total 1000 Output Total Balance 1000 Intake, IV 1000 Intake, Oral 0 Patient 198 lb Weight Weight Reported by Patient Measurement Method Physical Exam General Appearance: alert, awake, comfortable Head: normal appearance Eyes: Bilateral: normal appearance. Neck: normal inspection Respiratory: normal breath sounds Cardiovascular: regular rate/rhythm Gastrointestinal: non-tender, distention Extremities: normal inspection Labs/Aris Results: Laboratory Tests 08/14 08/13 08/13 0710 2014 1502 Chemistry Sodium Pending Potassium Pending Chloride Pending Carbon Dioxide Pending Anion Gap Pending BUN Pending Creatinine Pending BUN/Creatinine Ratio Pending Troponin I (<0.11 ng/ml) < 0.01 Hematology CBC w Diff Pending WBC Pending RBC Pending Hgb Pending Hct Pending MCV Pending MCH Pending MCHC Pending RDW Pending Plt Count Pending MPV Pending Urines Urinalysis LIGHT H Urine Color (YEL,AMB,STR) YEL Urine Clarity (CLEAR) HAZY H Urine pH (5.0 - 8.0) 6.0 Ur Specific [place] (1.001 - 1.035) 1.025 Urine Protein (NEG,<30 MG/DL) 30 H Urine Ketones (NEG) 15 H Urine Nitrite (NEG) NEG Urine Bilirubin (NEG) NEG@ICTO Urine Urobilinogen (0.1 - 1.0 EU/dl) 0.2 Ur Leukocyte Esterase (NEG) NEG Ur Microscopic SEDIMENT EXAMINED Urine RBC (0 - 5 /HPF) 1-3 Urine WBC (0 - 2 /HPF) 1-3 H Ur Epithelial Cells (NONE,FEW) RARE Urine Bacteria (NEG/NONE) FEW H Hyaline Casts (0/LPF) PACK H Granular Casts (NONE /LPF) RARE H Urine Mucus (FEW,NONE) FEW Urine Hemoglobin (NEG) NEG Urine Glucose (N MG/DL) NEG 08/13 08/13 08/13 1307 1018 1018 Chemistry Sodium (137 - 145 mmol/L) 141 141 Potassium (3.5 - 5.1 mmol/L) 4.4 4.3 Chloride (98 - 107 mmol/L) 109 H 106 Carbon Dioxide (22 - 30 mmol/L) 18 L 19 L Anion Gap (5 - 16) 14 16 BUN (9 - 20 mg/dL) 38 H 39 H Creatinine (0.7 - 1.2 mg/dL) 1.2 1.7 H Estimated GFR (>60 ml/min) > 60 40 L BUN/Creatinine Ratio (7 - 25 %) 31.7 H 22.9 Glucose (65 - 99 mg/dL) 202 H 199 H Hemoglobin A1c (4.2 - 5.8 %) Pending Serum Osmolality (285 - 295 MOSM/KG) 305 H Lactic Acid (0.7 - 2.1 mmol/L) 1.5 2.9 H Calcium (8.4 - 10.2 mg/dL) 8.2 L 9.3 Magnesium (1.6 - 2.3 mg/dL) 1.6 Total Bilirubin (0.2 - 1.3 mg/dL) 1.4 H AST (17 - 59 U/L) 20 ALT (21 - 72 U/L) 27 Alkaline Phosphatase (< 127 U/L) 51 Troponin I (<0.11 ng/ml) < 0.01 Total Protein (6.3 - 8.2 g/dL) 6.7 Albumin (3.5 - 5.0 g/dL) 4.0 Globulin (1.9 - 4.2 gm/dL) 2.7 Albumin/Globulin Ratio (1.1 - 2.2 %) 1.5 Lipase (23 - 300 U/L) < 10 L Coagulation D-Dimer High Sensitivty (0 - 243 ng/ml) 9328 H Hematology CBC w Diff MAN DIFF ORDERED WBC (4.8 - 10.8 /CUMM) 8.4 RBC (4.70 - 6.10 /CUMM) 5.26 Hgb (14.0 - 18.0 G/DL) 14.0 Hct (42 - 52 %) 42.8 MCV (80.0 - 94.0 FL) 81.5 MCH (27.0 - 31.0 PG) 26.6 L MCHC (33.0 - 37.0 G/DL) 32.7 L RDW (11.5 - 14.5 %) 15.2 H Plt Count (130 - 400 /CUMM) 199 MPV (7.4 - 10.4 FL) 10.3 Gran % (42.2 - 75.2 %) 93.3 H Lymphocytes % (20.5 - 51.1 %) 1.5 L Monocytes % (1.7 - 9.3 %) 5.2 Eosinophils % (0 - 5 %) 0 Basophils % (0.0 - 2.0 %) 0 Absolute Granulocytes (1.4 - 6.5 /CUMM) 7.9 H Segmented Neutrophils (42.2 - 75.2 %) 69 Band Neutrophils (0.0 - 5.0 %) 24 H Absolute Lymphocytes (1.2 - 3.4 /CUMM) 0.1 L Lymphocytes (20.5 - 51.1 %) 3 L Monocytes (1.7 - 9.3 %) 3 Absolute Monocytes (0.10 - 0.60 /CUMM) 0.4 Absolute Eosinophils (0.0 - 0.7 /CUMM) 0 Basophils (0.0 - 2.0 %) 1 Absolute Basophils (0.0 - 0.2 /CUMM) 0 Platelet Estimate (ADEQUATE) ADEQUATE Poikilocytosis RARE Ovalocytes RARE Selina Cells RARE Toxicology Acetone Level (NEGATIVE) NEGATIVE Assessment/Plan Assessment/Plan This 67-year-old male with a history of type 1 diabetes at the acute onset of nausea vomiting and diarrhea either due to a gastroenteritis or food poisoning. He is clearly improving now. He has been hydrated with IV fluids. Labs initially showed evidence of acute kidney injury which on repeat his creatinine had fallen from 1.7 to 1.2 after hydration. At the present time the patient states his appetite is still not good but he feels much improved overall. He denies any abdominal pain. There is been no further nausea vomiting or diarrhea since coming to the hospital. The patient is presently on clear liquids. Blood sugar was 253 this morning. We can advance the patient's diet gradually. With regard to his insulin, I would suggest that we continue Levemir 12 units twice a day. If he is able to tolerate full liquids well and if his lab work returned as satisfactory, we can Hep-Lock his IV fluids thius morning. If the patient is to stay on IV fluids we will change his NovoLog coverage to every 4 hours and keep glucose in the IV. NovoLog coverage every 4 hours while on IV fluids should be less than 150 give no insulin, 151-200 give 3 units NovoLog, 201-250 give 4 units NovoLog, 251-300 give 5 units NovoLog, 301-350 give 6 units NovoLog, 351-400 give 7 units NovoLog. If the patient is eating we would change his NovoLog coverage to 3 times a day before meals with a separate bedtime sliding scale. We can use the above NovoLog sliding scale before meals until we are sure that the patient is eating well. The separate bedtime sliding scale NovoLog should be less than 250 give no insulin, 251-300 give 2 units NovoLog, 301-350 give 3 units NovoLog, 351-400 give 4 units NovoLog. If the patient is discharged from the hospital I have already discussed with him running a temporary basal rate as he will have some Levemir on board when he leaves. Consult Acknowledgment - Thank you for your consult request.
[2017-08-14 08:11] LABS: ABSOLUTE BASOPHIL COUNT 0 /CUMM (0.0-0.2); ABSOLUTE EOSINOPHIL COUNT 0 /CUMM (0.0-0.7); ABSOLUTE GRANULOCYTE CT 4.4 /CUMM (1.4-6.5); ABSOLUTE LYMPH COUNT 0.3 /CUMM (1.2-3.4); BASOPHIL % 0.4 % (0.0-2.0); WHITE BLOOD CELL COUNT 5.1 /CUMM (4.8-10.8)
[2017-08-14 08:25] LABS: ABSOLUTE MONOCYTE COUNT 0.4 /CUMM (0.10-0.60); EOSINOPHIL % 0.3 % (0-5); MEAN CORPUSCULAR HGB 27.2 PG (27.0-31.0); MEAN CORPUSCULAR VOLUME 82.4 FL (80.0-94.0); MEAN PLATELET VOLUME 9.8 FL (7.4-10.4); PLATELET COUNT 133 /CUMM (130-400); RBC DISTRIBUTION WIDTH 15.8 % (11.5-14.5)
[2017-08-14 08:28] LABS: HEMATOCRIT 36.2 % (42-52)
--- NOTE | 2017-08-14 11:31 | PN- Housestaff ---
Pearl CONTRERAS,Annita 08/14/17 1130: Subjective Follow-up For: 1. Nausea, vomiting, diarrhea 2. Diabetes 3. Dizziness secondary to probable dehydration/questionable arrhythmia/ electrolyte disturbance 4. Back pain 5. History of hypertension and hyperlipidemia Complaints: no complaints Tele-Events Since Last Visit: Sinus rhythm 87-95 Subjective: Patient states that he is feeling good. He is tolerating clear liquid diet well and would like to leave today. He denies any nausea, vomiting, diarrhea, dizziness. Review of Systems Constitutional: Reports: no symptoms. Cardiovascular: Reports: no symptoms. Respiratory: Reports: no symptoms. Gastrointestinal: Reports: no symptoms. Genitourinary: Reports: no symptoms. Musculoskeletal: Reports: no symptoms. Neurological/Psychological: Reports: no symptoms. Objective Last 24 Hrs of Vital Signs/I&O Vital Signs Date Time Temp Pulse Resp B/P B/P Pulse O2 O2 Flow FiO2 Mean Ox Delivery Rate 08/14 1426 98.6 93 20 120/64 97 Room Air 08/14 0659 98.2 95 20 122/66 92 Room Air 08/14 0018 98.7 89 20 126/54 94 Room Air 08/13 2302 98.5 92 14 116/63 95 Room Air 08/13 2040 98.6 99 18 132/61 96 Room Air 08/13 1640 90/52 Intake & Output 08/14 1600 08/14 0800 08/14 0000 Intake Total Output Total Balance Patient 190 lb Weight Weight Reported by Patient Measurement Method Physical Exam General Appearance: Alert, Oriented X3, Cooperative, No Acute Distress Skin: No Rashes, No Breakdown, No Significant Lesion Sepsis Skin Exam (color): Normal for Ethnicity HEENT: Atraumatic, EOMI, Mucous Membr. moist/pink Cardiovascular: Regular Rate, Normal S1, Normal S2 Lungs: Clear to Auscultation, Normal Air Movement Abdomen: Normal Bowel Sounds, Soft, No Tenderness, No Hepatospenomegaly Neurological: Normal Speech Extremities: No Clubbing, No Cyanosis, No Edema Current Medications: Current Medications Sig/Markel Start time Last Medication Dose Route Stop Time Status Admin Acetaminophen 0 .STK-MED ONE 08/13 2029 DC IV Acetaminophen 650 MG ONCE ONE 08/13 2014 CAN PO 08/14 2015 Acetaminophen 1,000 MG Q6P PRN 08/13 1815 AC 08/14 IV 0809 Atorvastatin Calcium 80 MG 1700 08/14 1700 AC PO Dextrose/Sodium 1,000 ML Q10H 08/13 1815 CAN Chloride IV Dextrose/Sodium 1,000 ML Q10H 08/13 1800 AC 08/14 Chloride IV 1036 Enoxaparin Sodium 40 MG DAILY 08/14 0900 CAN SC Heparin Sodium 5,000 UNIT Q8 08/13 2200 AC (Porcine) SC Hydrocodone Bitart/ 1 TAB Q6P PRN 08/13 1945 AC Acetaminophen PO Insulin Aspart 0 AT BEDTIME 08/14 2100 AC SC Insulin Aspart 0 TIDAC 08/14 0800 AC 08/14 SC 1213 Insulin Detemir 12 UNITS BID 08/13 1800 AC 08/14 SC 0809 Ondansetron HCl 4 MG Q6P PRN 08/13 2014 AC IV Sodium Chloride 1,000 ML BOLUS ONE 08/13 1630 DC 08/13 IV 08/13 1729 1657 Last 24 Hrs of Lab/Aris Results Last 24 Hrs of Labs/Mics: Laboratory Tests 08/14/17 0710: Anion Gap 11, Estimated GFR > 60, BUN/Creatinine Ratio 34.3 H, CBC w Diff MAN DIFF ORDERED, RBC 4.40 L, MCV 82.4, MCH 27.2, MCHC 33.0, RDW 15.8 H, MPV 9.8, Gran % 86.0 H, Lymphocytes % 6.4 L, Monocytes % 6.9, Eosinophils % 0.3, Basophils % 0.4, Absolute Granulocytes 4.4, Segmented Neutrophils 60, Band Neutrophils 27 H, Absolute Lymphocytes 0.3 L, Lymphocytes 10 L, Monocytes 3, Absolute Monocytes 0.4, Absolute Eosinophils 0, Absolute Basophils 0, Platelet Estimate DECREASED, Poikilocytosis 2+, Anisocytosis 1+ 08/13/172014: Troponin I < 0.01 Microbiology 08/13 1629 STOOL: Stool Culture - CAN Cancelled: SPECIMEN NOT RECEIVED IN LABORATORY Assessment/Plan Assessment: This is a 67-year-old male with a past medical history significant for insulin- dependent diabetes mellitus for 11 years with an insulin pump placed 7 years back, hypertension on lisinopril, hyperlipidemia on simvastatin that comes to us for one day history of nausea, vomiting, diarrhea after eating a chicken/cheese empanada on Sunday afternoon In the ED, vitals were temperature afebrile, hypotensive and tachycardic with a creatinine of 1.7, BUN 39, lactic acidosis of 2.9. D-dimer 9328 and VQ scan negative. UA showed protein, ketones, Hyaline casts but no glucose. Acetone level negative. Troponin negative. CT head showed no acute hemorrhage, no cervical spine fracture but hypertrophic disc osteophyte complexes at mid to low cervical spine. 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 Patient was given fluids and his blood pressure increased to 120/56 then decreased again to 90/52. His lactic acid decreased to 1.5 and his creatinine decreased to 1.2. Patient however continued to feel nauseous, unwell , and have dizziness but no evidence of ketoacidosis. Differential diagnosis his gastrointestinal problems may be secondary to uncontrolled blood sugars/ gastroparesis. He may also be experiencing simple gastroenteritis or food poisoning. Secondary to his continued dizziness and labile vitals, we admitted him to telemetry for further monitoring. Plan 1. Nausea, vomiting, diarrhea: -Attempt to advance patient's to a whole food diabetic diet and can discharge is tolerating -Zofran for nausea and vomiting as needed -Monitor electrolytes and replete as needed, anion gap normal -D5 half-normal saline at 100 mils per hour, can continue -Stool culture ending -GI consult if patient continues to have symptoms but for now we will defer GI findings for outpatient follow-up with Dr. Armas 2. Diabetes -Endocrinology saw him this morning and will continue 12 units of insulin Levemir twice a day while in-house. They also gave us a new insulin scale at meals and at night now the patient is eating. His overnight blood sugars were 232-250. At home patient uses insulin pump and has been instructed to use 60% of the basal rate for the 8 hours after discharge and then to return to his normal dosing. -Hemoglobin A1c is 7.7 and patient could use better glucose control. 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 -Accu-Cheks 3. Dizziness secondary to probable dehydration/questionable arrhythmia/ electrolyte disturbance -Fall precautions -Continue telemetry until discharged -Replete electrolytes as needed and continue fluids 4. Back pain: Relieved with Tylenol but patient is a smoker and has a family history of coronary artery disease and risk factors. -Troponin and EKG 2 were normal. -Pain pathway -Patient unlikely to have any issues such as aortic dissection, can follow up with his regular doctor outpatient who can refer him for echocardiogram if desired. 5. History of hypertension and hyperlipidemia -Continue patient's atorvastatin 80 mg -Hold antihypertensives as patient's blood pressure is on the lower side. Patient's blood pressure this morning is 122/66 and he can be discharged on his home dose of lisinopril 10 mg. Patient is full code DVT prophylaxis with heparin and Alps Problem List: 1. Syncope 2. Hypotension 3. Dehydration 4. Nausea vomiting and diarrhea Pain Ratin Pain Location: na Pain Goal: Remain pain free Pain Plan: na Tomorrow's Labs & Rationales: Radha Burch 08/14/17 1315: Attending MD Review Statement Attending Statement Attending MD Statement: examined this patient, discuss w/resident/PA/COLLATOR HAND, agreed w/resident/PA/COLLATOR HAND, discussed with family, reviewed EMR data (avail), discussed with nursing, discussed with case mgmt, reviewed images, amended to note Attending Assessment/Plan: Patient seen/examined bedside. Denies any new complaints. Patient nausae/ dairrhea improved overnight. He is receiving IV hydratin with good repsonse to volume expansion. Advance diet as tolerated. Serial cardiac enzymes negative. Endo consulted for DM mangement on insulin pump. Patient can be discharged if tolerates diet. Follow up PCP in 1-[address] Herrera.
--- NOTE | 2017-08-14 11:45 | Patient Discharge Instructions ---
Discharge Instructions General Discharge Information You were seen/treated for: gastroenteritis syncopal episode low blood pressure resolved on fluids You had these procedures: Cardiac monitoring Watch for these problems: 1. sob 2. dizziness 3. chest pain Special Instructions: 1. follow up with your pcp in one week 2. follow up with your balance bridge assembler Dr. Pedersen for better glucose control. In the more immediate, use only 60% of your basal rate of insulin from your pump for the first 8 hours after dishcharge. After this, revert back to usual dosing. This is per Dr. Herrera's conversation with you earlier today. 3. follow up with Dr. Armas research home economist for liver cyst and CT abdomen findings of panniculitis. 4. please return to the ED if nausea returns or if back pain returns and worsens Diet Continue normal diet: No Recommended Diet: Diabetic Activity Full Activity/No Limits: Yes Acute Coronary Syndrome Inclusion Criteria At DC or during hospital stay patient has or had the following: ACS DIAGNOSIS No Discharge Core Measures Meds if any: Prescribed or Continued at Discharge Meds if any: NOT Prescribed or Continued at Discharge Congestive Heart Failure Inclusion Criteria At DC or during hospital stay patient has or had the following: CHF DIAGNOSIS No Discharge Core Measures Meds if any: Prescribed or Continued at Discharge Meds if any: NOT Prescribed or Continued at Discharge Cerebrovascular accident Inclusion Criteria At DC or during hospital stay patient has or had the following: CVA/TIA Diagnosis No Discharge Core Measures Meds if any: Prescribed or Continued at Discharge Meds if any: NOT Prescribed or Continued at Discharge Venous thromboembolism Inclusion Criteria VTE Diagnosis No VTE Type NONE VTE Confirmed by (Test) NONE Discharge Core Measures - Per Current guidelines, there needs to be overlap - treatment for the first 5 days of Warfarin therapy. - If discharged on Warfarin prior to 5 days of - overlap therapy, the patient will need to be - assessed for post discharge needs including - *Post discharge parental anticoagulation - *Warfarin and/or parental anticoagulation education - *Follow up date to check INR post discharge At least 5 days overlap therapy as Inpatient No Meds if any: Prescribed or Continued at Discharge Note: Overlap Therapy is Warfarin and Anticoagulant Meds if any: NOT Prescribed or Continued at Discharge
[2017-08-14] MEDS ORDERED: SNAP INSULIN P1 EACH SQ (14:06)
[2017-08-14 14:26] VITALS: BP 120/64
--- NOTE | 2017-08-14 15:01 | Discharge Summary ---
Hospital Course Allergies: Coded Allergies: No Known Allergies (08/13/17) Discharge Instructions Medications at Discharge Discharge Medications: Continue taking these medications: Ondansetron (Zofran Odt) 4 MG TAB.RAPDIS 1 Tablet SUBLINGUAL THREE TIMES DAILY as needed for NAUSEA Qty = 15 Comments: NOT GIVEN IN HOSPITAL Lisinopril (Lisinopril) 10 MG TABLET 1 Tablet ORAL DAILY Qty = 30 Comments: NOT GIVEN IN HOSPITAL Simvastatin (SIMVASTATIN*) 80 MG TABLET 1 Tablet ORAL DAILY Qty = 30 Comments: NOT GIVEN IN HOSPITAL Insulin Pump Controller (Snap Insulin Pump Controller) 1 EACH EACH 1 Unit SUB-Q CONTINUOUS Days = 30
--- NOTE | 2017-08-14 17:43 | ECHOCARDIOGRAM REPORT ---
MEGAN THURSTON Age: 67 : 1950 Gender: M Exam Date: 08/13/2017 19:25 Exam Location: ER Ht (in): 70 Wt (lb): 198 BSA: 2.12 BP: 90 / 52 Ordering Physician: Brady Oakley PA Referring Physician: Brady Oakley PA Technologist: Fadumo Concepcion RDCS Room Number: [id number] Indications: HYPOTENSION Rhythm: Sinus Technical Quality: Fair FINDINGS Left Ventricle Normal size left ventricle. Mild concentric left ventricular hypertrophy. No obvious regional wall motion abnormalities. Normal left ventricular ejection fraction visually estimated at >65%. Abnormal relaxation filling pattern of the left ventricle for age (stage 1 diastolic dysfunction). Right Ventricle Normal right ventricular size and function. Right Atrium Normal right atrial size. Left Atrium Normal left atrial size. Mitral Valve Mildly calcified mitral valve annulus. Mitral valve mildly mildly thickened. Trace mitral regurgitation. Aortic Valve Trileaflet and mildly thickened aortic valve leaflets. No aortic stenosis or regurgitation. Tricuspid Valve Structurally normal tricuspid valve. Trace tricuspid regurgitation. No evidence of pulmonary hypertension. Right ventricular systolic pressure estimated to be within the normal range at 32 mmHg. Pulmonic Valve Pulmonic valve not well visualized, grossly normal. Trace pulmonic regurgitation. Pericardium No pericardial effusion. Great Vessels Normal size aortic root. CONCLUSIONS Normal size left ventricle. Mild concentric left ventricular hypertrophy. Normal left ventricular ejection fraction visually estimated at > 65%. Abnormal relaxation filling pattern of the left ventricle for age (stage 1 diastolic dysfunction). Normal right ventricular size and function. Normal atrial size. Trace mitral regurgitation. Trace tricuspid regurgitation. No evidence of pulmonary hypertension. Trace pulmonic regurgitation. Pancho Ibanez M.D. (Electronically Signed) Final Date: 14 August 2017 17:42 MEASUREMENTS (Male / Female) Normal Values 2D ECHO LV Diastolic Diameter PLAX 4.7 cm 4.2 - 5.9 / 3.9 - 5.3 cm LV Systolic Diameter PLAX 2.0 cm 2.1 - 4.0 cm LV Fractional Shortening PLAX 57.4 % 25 - 46 % LV Ejection Fraction 2D Teich 87.6 % IVS Diastolic Thickness 1.1 cm LVPW Diastolic Thickness 1.2 cm LV Relative Wall Thickness 0.5 RV Internal Dim ED PLAX 2.5 cm 1.9 - 3.8 cm LVOT Diameter 2.1 cm Aortic Root Diameter 3.2 cm LA Systolic Diameter LX 4.2 cm 3.0 - 4.0 / 2.7 - 3.8 cm LA Volume 30.0 cm 18 - 58 / 22 - 52 cm Ascending Aorta Diameter 2.9 cm DOPPLER AV Peak Velocity 165.0 cm/s AV Peak Gradient 10.9 mmHg AV Mean Velocity 106.0 cm/s AV Mean Gradient 5.0 mmHg AV Velocity Time Integral 29.0 cm LVOT Peak Velocity 145.0 cm/s LVOT Peak Gradient 8.4 mmHg LVOT Mean Velocity 93.7 cm/s LVOT Mean Gradient 4.0 mmHg LVOT Velocity Time Integral 24.8 cm LVOT Stroke Volume 85.9 cm AV Area Cont Eq vti 3.0 cm AV Area Cont Eq pk 3.0 cm MV Peak Velocity 130.0 cm/s MV Peak Gradient 6.8 mmHg MV Mean Velocity 79.9 cm/s MV Mean Gradient 3.0 mmHg Mitral E Point Velocity 75.7 cm/s Mitral A Point Velocity 117.0 cm/s Mitral E to A Ratio 0.6 MV PHT Velocity 103.0 cm/s MV Deceleration [place] 1009.0 cm/s MV Pressure Half Time 30.6 ms MV Area PHT 7.2 cm MV Deceleration Time 227.0 ms TR Peak Velocity 261.0 cm/s TR Peak Gradient 27.2 mmHg Right Atrial Pressure 5.0 mmHg Pulmonary Artery Systolic Pressu 32.2 mmHg Right Ventricular Systolic Press 32.2 mmHg PV Peak Velocity 138.0 cm/s PV Peak Gradient 7.6 mmHg PV Mean Velocity 90.0 cm/s PV Mean Gradient 4.0 mmHg PV Velocity Time Integral 25.8 cm LV E' Lateral Velocity 9.6 cm/s Mitral E to LV E' Lateral Ratio 7.9 LV E' Septal Velocity 8.2 cm/s Mitral E to LV E' Septal Ratio 9.2
== END 2017-08-14 15:50 | DRG 392 ==
LOC: ERH 09:24 → 1NO 17:04 → ERHI 17:04 → ENRESERV 21:26 → ENTRNSPT 22:46 → 1NO 23:16 → CMPTRNSPT 08-14 07:11 → 1NO 08-14 08:05 → ENPENDDIS 08-14 15:19 → ENTRNSPT 08-14 15:21 → EDTRNSPT 08-14 15:45 → EDTRNSPTSTS 08-14 15:45 → 1NO 08-14 15:50 → CMPTRNSPT 08-14 16:22
PROVIDERS: Physician Assistant Medical; Student in an Organized Health Care Education/Training Program
DX: K52.9 Noninfective gastroenteritis and colitis, unspecified (principal); N17.9 Acute kidney failure, unspecified; I95.9 Hypotension, unspecified; E87.8 Other disorders of electrolyte and fluid balance, not elsewhere classified; E10.9 Type 1 diabetes mellitus without complications; R55 Syncope and collapse; Z79.4 Long term (current) use of insulin; Z96.41 Presence of insulin pump (external) (internal); E86.0 Dehydration; E78.5 Hyperlipidemia, unspecified; M54.9 Dorsalgia, unspecified; F17.210 Nicotine dependence, cigarettes, uncomplicated
CPT/HCPCS: 1NSP; 36592; 74176; 78582; 81001; 82436; 87045; 93005; 93010; 93306; A9540; A9558; J0131; J1644; J1650; J2405; J7042